=== PATIENT | female | born 2000 | race Caucasian/White ===

== ENCOUNTER 2024-10-25 08:26 | Outpatient (CLI) | payer BC, SELFPAY | END 2024-10-25 08:27 | disposition home or self-care (01) | PROVIDERS: PCP Nurse Practitioner Family; Visit Provider Physician Assistant | DX: Z34.01 Encounter for supervision of normal first pregnancy, first trimester (principal) | CPT/HCPCS: 86762; 86787 ==

== ENCOUNTER 2024-11-19 12:42 | Outpatient (CLI) | payer BC, SELFPAY ==
--- NOTE | 2024-11-19 13:00 | CRLHL7_ITS ---
For Patients: As a result of the Century Cures Act, medical imaging exams and procedure reports are released immediately into your electronic medical record. You may view this report before your referring provider. If you have questions, please contact your health care provider. OB ULTRASOUND GREATER THAN 14 WEEKS, 11/19/2024 CLINICAL HISTORY: screen. COMPARISON: None. TECHNIQUE: Multiple transabdominal forman-scale, color and M-mode Doppler images were obtained. FINDINGS: LMP: 07/05/2024. EH by LMP: 04/11/2025. GA: 19 weeks 4 days. Position: Transverse, head to maternal left. Cervix: Visualized. Technique: TA. Length of closed cervix: 3.0 cm. Placenta/Cord: Placenta Position: Posterior. Placenta tip to internal OS: 3.7 cm. Umbilical Cord: 3 vessel cord. Placental Insertion: Central. Amniotic Fluid: 3.3 cm SDP. Observed Structures: Calvarium/Spine: Cerebellum 1.8 cm, 19 weeks 0 days. Cisterna Magna: 2.3 mm Nuchal Fold: 4.0 mm Lateral ventricles: 4.8 mm CSP Midline Falx Choroid Plexus Spine Abdomen: Stomach Abd Cord Insert Urinary Bladder Kidneys Diaphragm Face: Nose/Lips Orbital view Profile Limbs: Upper extremities Lower extremities Hands Feet Vascular: LVOT 3VV 3VTV IMPRESSION: 1. Single viable intrauterine . 2. 19 week 4 day gestation by measurements. 3. Estimated weight 75th percentile. 4. Four chamber heart and RVOT views were suboptimal. Recommend follow-up images. 5. Otherwise normal anatomic survey. Joseluis Gongora M.D. Body/Diagnostic Radiologist [email or web address] Transcribed: 11:25 am DW/Dictated by: Joseluis Gongora MD @ 11/21/2024 11:01:00 AM (Electronically Signed)
== END 2024-11-19 12:43 | disposition home or self-care (01) ==
LOC: US 12:43
PROVIDERS: PCP Nurse Practitioner Family; Visit Provider Physician Assistant
DX: Z34.92 Encounter for supervision of normal pregnancy, unspecified, second trimester (principal); Z3A.19 19 weeks gestation of pregnancy
CPT/HCPCS: 76805

== ENCOUNTER 2024-12-20 12:56 | Outpatient (CLI) | payer BC, SELFPAY ==
--- NOTE | 2024-12-20 13:00 | CRLHL7_ITS ---
For Patients: As a result of the Century Cures Act, medical imaging exams and procedure reports are released immediately into your electronic medical record. You may view this report before your referring provider. If you have questions, please contact your health care provider. OB ULTRASOUND FOLLOW-UP, 12/20/2024 [place] HISTORY: Suboptimal heart views. COMPARISON: 11/19/2024. TECHNIQUE: Real time forman scale imaging of the fetus was performed. Transabdominal imaging performed. FINDINGS: EH by LMP: 04/11/2025. GA: 24 weeks 0 days. Positioning: Vertex. Amniotic Fluid: 5.9 cm SDP. Placenta: Technique: TA. Placenta Position: Posterior. Dopplers: Heart Rate: 155 bpm. IMPRESSION: Normal RVOT, 3 vessel trachea view, three vessel view and LVOT. Normal four chamber heart. Amish Godinez M.D. Diagnostic Radiologist [email or web address] Transcribed: 3:31 pm DW/Dictated by: Amish Godinez MD @ 12/20/2024 3:17:00 PM (Electronically Signed)
== END 2024-12-20 12:57 | disposition home or self-care (01) ==
LOC: US 12:56
PROVIDERS: PCP Nurse Practitioner Family; Visit Provider Obstetrics & Gynecology
DX: O36.8320 Maternal care for abnormalities of the fetal heart rate or rhythm, second trimester, not applicable or unspecified (principal); Z3A.24 24 weeks gestation of pregnancy
CPT/HCPCS: 76816

== ENCOUNTER 2025-01-15 13:59 | Outpatient (CLI) | payer BC, SELFPAY | END 2025-01-15 14:00 | disposition home or self-care (01) | LOC: NFLDREF 01-21 20:06 | PROVIDERS: PCP Nurse Practitioner Family; Referring Provider Nurse Practitioner Family; Visit Provider Obstetrics & Gynecology | DX: Z34.93 Encounter for supervision of normal pregnancy, unspecified, third trimester (principal) | CPT/HCPCS: 86592 ==

== ENCOUNTER 2025-01-19 19:43 | Outpatient (CLI) | payer BC, SELFPAY ==
[2025-01-19 20:02] VITALS: BP 118/71; PULSE 80; RESP 18; TEMP 36.7; O2SAT 98
--- NOTE | 2025-01-19 20:33 | PC.OBNST ---
NST Note NST Note Start: 01/19/25 20:05 Freq: ONCE Status: Active Protocol: Document 01/19/25 20:30 [facility] (Rec: 01/19/25 20:32 [facility] [id number]) NST Note 1 Para (# of births) 0 EDC 04/11/25 Gestational Age In 28 Weeks & 2 Days Weeks & Days Patient Presented Decreased movement with Complaint(s) of Reactive Yes Appropriate for Yes Gestational Age NASIR Hernandez RNC Date 01/19/25 Reactive Yes Appropriate for Yes Gestational Age NASIR Conde RNC Date 01/19/25 OB NST charge Yes Complete NST Note Yes via Write Note The provider's electronic signature indicates the NST is reactive/appropriate for gestational age. *Note to provider: If an addendum is required, open the patient's chart and click on the note under the Nurse/Allied Health tab.
== END 2025-01-19 20:20 | disposition home or self-care (01) ==
LOC: OB OUT 19:46 → OB 20:10
PROVIDERS: PCP Nurse Practitioner Family; Visit Provider Obstetrics & Gynecology
DX: O36.8130 Decreased fetal movements, third trimester, not applicable or unspecified (principal); Z3A.28 28 weeks gestation of pregnancy
CPT/HCPCS: 59025; G0463

== ENCOUNTER 2025-03-07 13:05 | Outpatient (CLI) | payer BC, SELFPAY ==
[2025-03-07 17:38] LABS: Bacterial Vaginosis* Negative (Negative); Candida glab/krus NOT DETECTED (No Detected)
== END 2025-03-07 13:06 | disposition home or self-care (01) ==
PROVIDERS: PCP Nurse Practitioner Family; Visit Provider Obstetrics & Gynecology
DX: N89.8 Other specified noninflammatory disorders of vagina (principal); L29.9 Pruritus, unspecified; O99.713 Diseases of the skin and subcutaneous tissue complicating pregnancy, third trimester
CPT/HCPCS: 80053; 81513; 82239; 87081; 87481; 87653; 87661

== ENCOUNTER 2025-03-14 12:11 | Outpatient (CLI) | payer BC, SELFPAY ==
--- NOTE | 2025-03-14 12:15 | CRLHL7_ITS ---
For Patients: As a result of the Cures Act, medical imaging exams and procedure reports are released immediately into your electronic medical record. You may view this report before your referring provider. If you have questions, please contact your health care provider. OB ULTRASOUND EH by LMP: 04/11/2025. GA: 36 w, 0 d. Single. Comparison: 12/20/2024, 11/19/2024. INDICATION: Cholestasis. TECHNIQUE: Real time grayscale imaging of the fetus was performed. Transabdominal. CERVIX: Not visualized. POSITIONING: Vertex. AMNIOTIC FLUID: 6.6 cm. SDP (N: greater than 2 x 1 cm) BIOPHYSICAL PROFILE: 2: Gross body movements 2: tone 2: Respiratory activity 2: Amniotic fluid SDP (N: greater than 2 x 1 cm) 11/09: Total score PLACENTA: Technique: Transabdominal. PLACENTA POSITION: Posterior. DOPPLER: heart rate: 145 bpm. BIOMETRY: BPD: 8.4 cm. 33 w, 6 d, 7.9%. HC: 31.5 cm. 35 w, 3 d, 10.5%. AC: 31.4 cm. 35 w, 2 d, 39.5%. FL: 6.8 cm. 34 w, 6 d, 17.1%. FL/AC ratio: 21.58%. HC/AC ratio: 1.01. EFW: 2574g. Weight: 5 lbs., 11 oz. age by this US: 34 w, 6 d. EH by this US: 04/19/2025. Percentile by EH: 25.2%. IMPRESSION: 1. Normal biophysical profile score 11/09. 2. Sonographic gestational age 34 weeks 6 days and sonographic due date 04/19/2025. Sonographic age is 8 days behind the clinical age. 3. Estimated weight 25th percentile. Abdominal circumference 40th percentile. Amish Godinez M.D. Diagnostic Radiologist [email or web address] ELMO/susana meza/Dictated by: Amish Godinez MD @ 03/14/2025 1:44:00 PM (Electronically Signed)
== END 2025-03-14 12:12 | disposition home or self-care (01) ==
LOC: US 12:11
PROVIDERS: PCP Nurse Practitioner Family; Visit Provider Obstetrics & Gynecology
DX: O26.643 Intrahepatic cholestasis of pregnancy, third trimester (principal); K83.1 Obstruction of bile duct; Z3A.36 36 weeks gestation of pregnancy
CPT/HCPCS: 76816; 76819